=== PATIENT | female | born 1985 | race Caucasian/White ===

== ENCOUNTER 2021-01-10 13:12 | Inpatient (IN) | payer MEDICARE, SELFPAY ==
[2021-01-10 13:37] VITALS: BP 116/81; PULSE 76; RESP 18; TEMP 36.6; O2SAT 98
[2021-01-10 14:00] VITALS: BP 116/81; PULSE 76; RESP 18; TEMP 36.6; O2SAT 98
[2021-01-10 14:24] VITALS: BMI 21.1
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
[2021-01-10 20:55] VITALS: BP 121/80; PULSE 67; RESP 15; TEMP 36.7; O2SAT 99
[2021-01-10] MEDS: trazodone 50 mg Tablet PO (20:58)
[2021-01-11 06:00] VITALS: PULSE 62; RESP 15; TEMP 36.6; O2SAT 99
--- NOTE | 2021-01-11 09:15 | PC.OT ---
OT EVALUATION ATTEMPTED. PATIENT AWAKENS I AM TALKING WITH HER ROOM-MATE AND MUMBLES SEVERAL NUMBERS. HOWEVER, DOES NOT AWAKEN A FEW MINUTES LATER WHEN I ATTEMPT HER EVALUATION. WILL ATTEMPT AGAIN AT A LATER TIME.
--- NOTE | 2021-01-11 10:13 | PC.NURSE ---
PT BEHAVIOR LOUD BANGING SOUND HEARD COMING FROM PT'S ROOM. STAFF IMMEDIATELY WENT TO PT'S ROOM AND DISCOVERED THAT PT HAD THROWN HER MEAL TRAY INTO THE FLOOR. PT'S ROOMMATE APPEARED FRIGHTENED AND REPORTED THAT PT THREW HER TRAY OUT OF NOWHERE. WHEN TIMBER INSPECTOR ASKED PT WHAT TRIGGERED HER BEHAVIOR, PT REPORTS THAT SHE GOT MAD BECAUSE HER ROOMMATE WAS DOING SIGN LANGUAGE AT HER. PT WAS FACING THE WINDOW, THE OPPOSITE DIRECTION FROM HER ROOMMATE. TIMBER INSPECTOR ASKED IF PT SAW HER ROOMMATE DOING SIGN LANGUAGE AND PT REPORTED THAT SHE DID NOT. PT IS IRRITABLE AND ANGRY DEMANDING THAT HER ROOMMATE AND TIMBER INSPECTOR LEAVE HER ROOM. NURSING STAFF WILL MOVE PT'S ROOMMATE TO ANOTHER ROOM FOR SAFETY. PT RESTING IN BED WHEN TIMBER INSPECTOR EXITS THE ROOM. WILL CONTINUE TO MONITOR PT.
[2021-01-11] MEDS: ARIPiprazole 10 mg Tablet 5 MG PO (11:43)
--- NOTE | 2021-01-11 12:15 | P.NPUPN_ITS ---
Subjective NPU Subjective: Interval history: I found her in bed at 1210 after lunch. She was not asleep and was immediately attentive when I walked in the room. When I walked in the room she said she did not feel good. She complained that my voices were in her head. She asked me if I was putting my voice in her head. She says that she slept a little better last night but would like to increase her trazodone to sleep even better. She denies any benefits or any side effects from the Abilify 5 mg this morning. She requested increasing that to 10 mg. Mental Status Exam MSE Comments: This is a 35-year-old female who was found laying in bed very anxious and tearful. She is in hospital scrubs and disheveled. She seemed to be upset by my presence. She said I was putting voices in her head. psychomotor activity is increased. Speech is at a regular rate and rhythm, normal volume, good articulation, not pressured. Orientation was not obtained because she was not happy with the interaction.. Attention and concentration seem to be intact. Memory was not assessed Mood is depressed and anxious. Affect very dysphoric and tearful. Thought process is difficult to discern. Thought content: She reports hallucinations continue.. No delusions or paranoia are noted. No current suicidal ideation, and no homicidal ideation. Fund of knowledge is seems to be limited. Insight and judgment appear to be fair. Impulse control is fair as well. Cognition: Patient Appearance: Disheveled/Poor Hygiene Ability to Follow Directions: Fair Patient Orientation (long list): Person, Name and Birthday Comprehension Ability: Understands Concepts Hallucination Type: Visual Delusion Description: Paranoid Ideation and Persecutory Thought Process: Circumstantial Affect: Affect Description: Labile Behavior: Patient Behavior: Angry, Demanding, Hostile, Impulsive, Irritable and Uncooperative Speech Pattern: Includes Profanity Vitals/I&O/Wt Last Vital Signs Temp 97.9 F 01/11/21 06:00 Pulse 62 01/11/21 06:00 Resp 15 01/11/21 06:00 BP 121/80 01/10/21 20:55 Pulse Ox 99 01/11/21 06:00 Weight last 48 hrs Weight 48.988 kg A&P Assessment and plan (1) Schizophrenia, chronic condition: Status: Acute Additional A&P Information Plan: 1. We will increase Abilify to 10 mg and trazodone 100 mg. We will increase the Abilify fairly quickly and adjust trazodone as needed. We also adjust medication as more information is received. 2. Continue every 15 minute checks for safety. 3. Encourage individual, group and milieu therapies. 4. Encourage sober living treatment after discharge at the highest level of care to which she is willing to commit. 5. We will monitor for safety for herself in the community prior to discharge. Involuntary Hold Information 96 Hour Hold: 96 Hour Involuntary Admission: No Attestations NPU Medical Necessity Statement*: Inpatient hospitalization is medically necessary and the clinically appropriate intervention at this time. We will initiate medications and make changes as indicated. Coding Level of Care Code Acute Wheelchair Van Operator First Responder for Yohannes Moctezuma Diagnoses Schizophrenia, chronic condition F20.9
--- NOTE | 2021-01-11 13:23 | NPU.GN ---
[facility] Topic:Psychiatric Education General Mood of Group: Selene did not attend or participate in group today. p
[2021-01-11] MEDS: hyDROXYzine 25 mg Capsule 50 MG PO (13:31)
[2021-01-11] MEDS: OLANZapine 5 mg ODT PO (13:31)
[2021-01-11 14:00] VITALS: RESP 17
[2021-01-11] MEDS: trazodone 50 mg Tablet 100 MG PO (20:37)
[2021-01-11 21:20] VITALS: BP 101/60; PULSE 82; RESP 17; TEMP 37; O2SAT 98
[2021-01-12 06:00] VITALS: RESP 17
--- NOTE | 2021-01-12 06:21 | PC.NURSE ---
pt ripped b/p cuff off of her arm and loudly stated you will do this later and pt proceeded to throw cuff at staff
[2021-01-12] MEDS: ARIPiprazole 10 mg Tablet PO (10:02)
--- NOTE | 2021-01-12 12:29 | NPU.GN ---
[facility] Topic:roup Topic: What are we Thankful For General Mood of Group:Selene did not attend group today she wanted to sleep.
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
[2021-01-12 14:00] VITALS: BP 116/74; PULSE 122; RESP 18; O2SAT 93
[2021-01-12 21:43] VITALS: RESP 16
[2021-01-13 06:00] VITALS: RESP 16
[2021-01-13] MEDS: ARIPiprazole 10 mg Tablet 20 MG PO (08:57)
--- NOTE | 2021-01-13 13:05 | NPU.GN ---
[facility] Topic:Group Topic: Pie of Emotions, Coping, and Supports General Mood of Group: Selene did not attend or participate in group today.
[2021-01-13 14:00] VITALS: BP 113/80; PULSE 104; RESP 16; TEMP 36.6; O2SAT 97
--- NOTE | 2021-01-13 14:10 | P.NPUPN_ITS ---
Subjective NPU Subjective: Interval history: She is doing much better today. I found her at the nurses window and she seemed happy to talk to me which is a big change from yesterday. She said that she is doing well. I asked in what way she was better and she said I am not not angry and rude with you like I was before . She said she woke up and the voices were gone. I told her I had increased the Abilify today because I thought that the voices were no better. She said that is probably good and would like to continue at the higher dose. She does not feel that she has side effects from the Abilify at that dose. She feels like she is ready to leave. She said that she had arranged to go to [facility] in [place]. The social workers are going to look into that. Tomorrow but that will almost certainly be impossible. May be Monday. Mental Status Exam MSE Comments: This is a 35-year-old thin female in hospital scrubs who was found at the nurses station. She seemed happy to talk with me which is a big change from yesterday. psychomotor activity is mildly increased. Speech is at a regular rate and rhythm, normal volume, good articulation, not pressured. Alert and oriented x3. Attention and concentration seem to be intact. Memory seems to be intact Mood is good. Affect mildly anxious. She broke into tears when I said the Abilify was working. She said it was tears of aj. Thought process is difficult to discern. Thought content: She reports hallucinations are gone completely as of when she woke up this morning. No current suicidal ideation, and no homicidal ideation. Fund of knowledge is seems to be limited. Insight and judgment appear to be improved. Impulse control is improved as well. Cognition: Patient Appearance: Disheveled/Poor Hygiene Ability to Follow Directions: Fair Patient Orientation (long list): Person, Name and Birthday Comprehension Ability: Understands Concepts Hallucination Type: None Delusion Description: Paranoid Ideation and Persecutory Thought Process: Circumstantial Affect: Affect Description: Guarded Behavior: Patient Behavior: Appropriate and Irritable Speech Pattern: Appropriate Vitals/I&O/Wt Last Vital Signs Temp 98.6 F 01/11/21 21:20 Pulse 122 H 01/12/21 14:00 Resp 16 01/13/21 06:00 BP 116/74 01/12/21 14:00 Pulse Ox 93 01/12/21 14:00 A&P Assessment and plan (1) Schizophrenia, chronic condition: Status: Acute Additional A&P Information Plan: 1. Continue Abilify 20 mg and trazodone 100 mg. 2. Continue every 15 minute checks for safety. 3. Encourage individual, group and milieu therapies. 4. Encourage sober living treatment after discharge at the highest level of care to which she is willing to commit. 5. We will monitor for safety for herself in the community prior to discharge. Involuntary Hold Information 96 Hour Hold: 96 Hour Involuntary Admission: No Attestations NPU Medical Necessity Statement*: Inpatient hospitalization is medically necessary and the clinically appropriate intervention at this time. We will initiate medications and make changes as indicated. Coding Level of Care Code Acute Icebox Worker for Yohannes Moctezuma Diagnoses Schizophrenia, chronic condition F20.9
[2021-01-13 21:02] VITALS: BP 103/65; PULSE 88; RESP 15; O2SAT 97
[2021-01-13] MEDS: hyDROXYzine 25 mg Capsule 50 MG PO (23:23)
[2021-01-13] MEDS: OLANZapine 5 mg ODT PO (23:24)
[2021-01-14 06:00] VITALS: BP 126/88; PULSE 67; RESP 15; O2SAT 97
[2021-01-14] MEDS: ARIPiprazole 10 mg Tablet 20 MG PO (08:51)
[2021-01-14 14:00] VITALS: BP 126/88; PULSE 67; RESP 15; TEMP 36.6; O2SAT 97
--- NOTE | 2021-01-14 14:04 | W.PM.NPUPNS ---
Subjective NPU Subjective: Interval history: She said that she continues to do well. She continues to deny auditory or visual hallucinations. She is very focused on going home. I asked her about her brain being plugged into a computer as she told me the first day that she was here. She says that she does not know what I am talking about. She complains that we talked to her when she is half awake. She is very focused on going home tomorrow and said that we have no right to keep her longer than tomorrow. She is homeless and does not have a place to stay. She wants to be dropped off at a place where they help people find at home. She was told that they will not be open and will not be able to find a place to stay. She said that is fine and she would find a place. She was not happy that I did not feel comfortable releasing her without a safe place to stay. I got the impression that she might be covering up the voices because she wants to be released. Mental Status Exam MSE Comments: This is a 35-year-old thin female in hospital scrubs who was found at the nurses station. She seemed a little irritated with me today. psychomotor activity is mildly increased. Speech is at a regular rate and rhythm, normal volume, good articulation, not pressured. Alert and oriented x3. Attention and concentration seem to be intact. Memory seems to be intact Mood is good. Affect more anxious than yesterday. Thought process is difficult to discern. Thought content: She continues to report that the voices are completely gone. No current suicidal ideation, and no homicidal ideation. Fund of knowledge is seems to be limited. Insight and judgment appear to be limited. Impulse control is limited. Cognition: Patient Appearance: Disheveled/Poor Hygiene Ability to Follow Directions: Fair Patient Orientation (long list): Person, Name and Birthday Comprehension Ability: Understands Concepts Hallucination Type: None Delusion Description: Paranoid Ideation and Persecutory Thought Process: Circumstantial Affect: Affect Description: Guarded Behavior: Patient Behavior: Appropriate and Irritable Speech Pattern: Appropriate Vitals/I&O/Wt Last Vital Signs Temp 97.9 F 01/13/21 14:00 Pulse 67 01/14/21 06:00 Resp 15 01/14/21 06:00 BP 126/88 01/14/21 06:00 Pulse Ox 97 01/14/21 06:00 A&P Assessment and plan (1) Schizophrenia, chronic condition: Status: Acute Additional A&P Information Plan: 1. Continue Abilify 20 mg and trazodone 100 mg. 2. Continue every 15 minute checks for safety. 3. Encourage individual, group and milieu therapies. 4. Encourage sober living treatment after discharge at the highest level of care to which she is willing to commit. 5. We will monitor for safety for herself in the community prior to discharge. Involuntary Hold Information 96 Hour Hold: 96 Hour Involuntary Admission: No Attestations NPU Medical Necessity Statement*: Inpatient hospitalization is medically necessary and the clinically appropriate intervention at this time. We will initiate medications and make changes as indicated. Coding Level of Care Code Acute Line Assembler Aircraft for Yohannes Moctezuma Diagnoses Schizophrenia, chronic condition F20.9
[2021-01-14 19:12] VITALS: BP 120/80; PULSE 11; RESP 16; TEMP 37.1; O2SAT 94
[2021-01-14] MEDS: OLANZapine 5 mg ODT PO (20:48)
[2021-01-14] MEDS: hyDROXYzine 25 mg Capsule 50 MG PO (20:48)
[2021-01-15 05:33] VITALS: RESP 18
[2021-01-15] MEDS: ARIPiprazole 10 mg Tablet 20 MG PO (09:46)
--- NOTE | 2021-01-15 09:56 | P.NPUPN_ITS ---
Subjective NPU Subjective: Interval history: She said that she continues to be doing well. She continues to deny voices for the last 2 days. She says that she is not worried about people shape shifting. She feels like she is ready to go home. She is willing to wait until Monday when the place in [place] that she has been talking to is available. She said that she is not sleeping well. She evidently used her 2 doses of trazodone. She felt like it was working well for her. She has been getting Zyprexa 5 mg and Vistaril to help her sleep. She wanted the trazodone restarted. Mental Status Exam MSE Comments: This is a 35-year-old thin female in hospital scrubs who was found in bed at 10 AM. She did not seem irritated like she did yesterday. psychomotor activity is normal. Speech is at a regular rate and rhythm, normal volume, good articulation, not pressured. Alert and oriented x3. Attention and concentration seem to be intact. Memory seems to be intact Mood is good. Affect very mildly anxious. Thought process is difficult to discern. It is possible that she is covering up her hallucinations and delusions. Thought content: She continues to report that the voices are completely gone. No current suicidal ideation, and no homicidal ideation. Fund of knowledge is seems to be limited. Insight and judgment appear to be limited. Impulse control is limited. Cognition: Patient Appearance: Disheveled/Poor Hygiene Ability to Follow Directions: Fair Patient Orientation (long list): Person, Name and Birthday Comprehension Ability: Understands Concepts Hallucination Type: None Delusion Description: Paranoid Ideation and Persecutory Thought Process: Circumstantial Affect: Affect Description: Guarded Behavior: Patient Behavior: Appropriate and Irritable Speech Pattern: Appropriate Vitals/I&O/Wt Last Vital Signs Temp 98.8 F 01/14/21 19:12 Pulse 11 L 01/14/21 19:12 Resp 18 01/15/21 05:33 BP 120/80 01/14/21 19:12 Pulse Ox 94 01/14/21 19:12 A&P Assessment and plan (1) Schizophrenia, chronic condition: Status: Acute Additional A&P Information This is a 35-year old female with a long history of schizophrenia and who asked for admission to get back on her medications for her auditory hallucinations. Plan: 1. Continue Abilify 20 mg and trazodone 100 mg. 2. Continue every 15 minute checks for safety. 3. Encourage individual, group and milieu therapies. 4. Encourage sober living treatment after discharge at the highest level of care to which she is willing to commit. 5. We will monitor for safety for herself in the community prior to discharge. Involuntary Hold Information 96 Hour Hold: 96 Hour Involuntary Admission: No Attestations NPU Medical Necessity Statement*: Inpatient hospitalization is medically necessary and the clinically appropriate intervention at this time. We will initiate medications and make changes as indicated. Coding Level of Care Code Acute Product Engineering Manager for Yohannes Moctezuma Diagnoses Schizophrenia, chronic condition F20.9
[2021-01-15 14:00] VITALS: BP 112/75; PULSE 89; RESP 18; TEMP 36.7; O2SAT 100
[2021-01-15] MEDS: trazodone 100 mg Tablet PO (20:18)
[2021-01-15] MEDS: hyDROXYzine 25 mg Capsule 50 MG PO (20:19)
[2021-01-15 20:24] VITALS: BP 111/69; PULSE 116; RESP 18; TEMP 36.7; O2SAT 96
[2021-01-15] MEDS: OLANZapine 5 mg ODT PO (21:15)
[2021-01-16 05:57] VITALS: RESP 16
[2021-01-16] MEDS: ARIPiprazole 10 mg Tablet 20 MG PO (10:12)
--- NOTE | 2021-01-16 10:59 | P.NPUPN_ITS ---
Subjective NPU Subjective: Interval history: She was again found in bed at 11 AM. She says that she slept fairly well last night. She continues to say that her hallucinations are improved. The nurses say that she seems less paranoid. She denied any paranoia today. She very much wants to leave. She says that she could use her Social Security to get a hotel room so she can get a job. She says that she has an appointment at vocational rehab. She wants us to drop her off at the [facility] to get in contact with resources and then she will get a hotel using her Social Security. She says that she will have her Social Security deposited on her card today or tomorrow. Mental Status Exam MSE Comments: This is a 35-year-old thin female in hospital scrubs who was found in bed at 11 AM. She seemed mildly annoyed that I bothered her. psychomotor activity is normal. Speech is at a regular rate and rhythm, normal volume, good articulation, not pressured. Alert and oriented x3. Attention and concentration seem to be intact. Memory seems to be intact Mood is good. Affect very mildly anxious. Thought process is difficult to discern. Thought content: She continues to report that the voices are completely gone. No current suicidal ideation, and no homicidal ideation. Fund of knowledge is seems to be limited. Insight and judgment appear to be limited. Impulse control is limited. Cognition: Patient Appearance: Disheveled/Poor Hygiene Ability to Follow Directions: Fair Patient Orientation (long list): Person, Name and Birthday Comprehension Ability: Understands Concepts Hallucination Type: None Delusion Description: Paranoid Ideation and Persecutory Thought Process: Circumstantial Affect: Affect Description: Appropriate Behavior: Patient Behavior: Cooperative Speech Pattern: Appropriate and Clear Vitals/I&O/Wt Last Vital Signs Temp 98.0 F 01/15/21 20:24 Pulse 116 H 01/15/21 20:24 Resp 16 01/16/21 05:57 BP 111/69 01/15/21 20:24 Pulse Ox 96 01/15/21 20:24 A&P Assessment and plan (1) Schizophrenia, chronic condition: Status: Acute Additional A&P Information This is a 35-year old female with a long history of schizophrenia and who asked for admission to get back on her medications for her auditory hallucinations. Plan: 1. Continue Abilify 20 mg and trazodone 100 mg. 2. Continue every 15 minute checks for safety. 3. Encourage individual, group and milieu therapies. 4. Encourage sober living treatment after discharge at the highest level of care to which she is willing to commit. 5. We will monitor for safety for herself in the community prior to discharge. Involuntary Hold Information 96 Hour Hold: 96 Hour Involuntary Admission: No Attestations NPU Medical Necessity Statement*: Inpatient hospitalization is medically necessary and the clinically appropriate intervention at this time. We will initiate medications and make changes as indicated. Coding Level of Care Code Acute Check Services Clerk for Yohannes Moctezuma Diagnoses Schizophrenia, chronic condition F20.9
[2021-01-16 14:00] VITALS: BP 109/74; PULSE 88; RESP 18; TEMP 36.4; O2SAT 98
--- NOTE | 2021-01-16 18:35 | PC.NURSE ---
Patient resting in bed. Has been calm and cooperative today. Denies any AVH or SI/HI. Has good affect and appropriate responses when approached. Ox4. Remains isolative most of shift but has been up some, appropriate interaction when is up.
[2021-01-16 19:41] VITALS: BP 113/75; PULSE 91; RESP 15; TEMP 36.9; O2SAT 98
[2021-01-16] MEDS: hyDROXYzine 25 mg Capsule 50 MG PO (20:40)
[2021-01-16] MEDS: trazodone 100 mg Tablet PO (20:40)
[2021-01-17 06:00] VITALS: BP 116/79; PULSE 89; RESP 17; TEMP 36.6; O2SAT 98; BMI 21.1
[2021-01-17] MEDS: ARIPiprazole 10 mg Tablet 20 MG PO (10:15)
--- NOTE | 2021-01-17 10:53 | P.NPUPN_ITS ---
Subjective NPU Subjective: Interval history: She was again found in bed at 11 AM. She says that she slept fairly well last night. She continues to say that her hallucinations are completely gone. She denies any suicidal ideation or wishes for in the last few days. She has certainly been less irritable and seems to be doing better. She is still adamant that she wants to leave tomorrow whether or not she has a safe place to go. She says that she will use her Social Security to get a hotel room. Mental Status Exam MSE Comments: This is a 35-year-old thin female in hospital scrubs who was found in bed at 11 AM. She she did not seem annoyed that I bothered her. psychomotor activity is normal. Speech is at a regular rate and rhythm, normal volume, good articulation, not pressured. Alert and oriented x3. Attention and concentration seem to be intact. Memory seems to be intact Mood is good. Affect very mildly anxious. Thought process is difficult to discern. Thought content: She continues to report that the voices are completely gone. No delusional material was reported. She no longer feels that her brain is wired up for control. No current suicidal ideation, and no homicidal ideation. Fund of knowledge is seems to be limited. Insight and judgment appear to be limited. Impulse control is limited. Cognition: Patient Appearance: Disheveled/Poor Hygiene Ability to Follow Directions: Fair Patient Orientation (long list): Person, Name and Birthday Comprehension Ability: Understands Concepts Hallucination Type: None Delusion Description: Paranoid Ideation and Persecutory Thought Process: Circumstantial Affect: Affect Description: Calm Behavior: Patient Behavior: Cooperative Speech Pattern: Clear Vitals/I&O/Wt Last Vital Signs Temp 97.9 F 01/17/21 06:00 Pulse 89 01/17/21 06:00 Resp 17 01/17/21 06:00 BP 116/79 01/17/21 06:00 Pulse Ox 98 01/17/21 06:00 Weight last 48 hrs Weight 48.988 kg A&P Assessment and plan (1) Schizophrenia, chronic condition: Status: Acute Additional A&P Information This is a 35-year old female with a long history of schizophrenia and who asked for admission to get back on her medications for her auditory hallucinations. Plan: 1. Continue Abilify 20 mg and trazodone 100 mg. 2. Continue every 15 minute checks for safety. 3. Encourage individual, group and milieu therapies. 4. Encourage sober living treatment after discharge at the highest level of care to which she is willing to commit. 5. We will monitor for safety for herself in the community prior to discharge. Involuntary Hold Information 96 Hour Hold: 96 Hour Involuntary Admission: No Attestations NPU Medical Necessity Statement*: Inpatient hospitalization is medically necessary and the clinically appropriate intervention at this time. We will initiate medications and make changes as indicated. Coding Level of Care Code Acute [facility] Finisher for Yohannes Moctezuma Diagnoses Schizophrenia, chronic condition F20.9
[2021-01-17 13:58] LABS: Add Urine Culture? Yes; Amorphous Sediment Urine 3+ /hpf; Bacteria Urine 1+ /hpf; Bilirubin Urine Neg (Negative); Blood Urine Neg (Negative); Glucose Urine UA Norm (Normal); Ketones Urine Negative (Negative); Leukocyte Esterase Urine 2+ (Negative); Nitrate Urine Negative (Negative); Protein Urine Neg (Negative); Specific Gravity, Urine 1.015 (1.005-1.030); Sulfosalicylic Acid Urine Negative (Negative); Urine Appearance Clear (CLEAR); Urine Color Yellow (Yellow); Urobilinogen Urine Norm (Negative); WBC Urine 15-25 /hpf (0-5); pH Urine 8 (5-7)
[2021-01-17 14:00] VITALS: BP 110/70; PULSE 91; RESP 16; TEMP 36.7; O2SAT 98
[2021-01-17] MEDS: trazodone 100 mg Tablet PO (20:56)
[2021-01-17 21:36] VITALS: RESP 16
[2021-01-18 06:00] VITALS: RESP 20
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
[2021-01-18] MEDS: ARIPiprazole 10 mg Tablet 20 MG PO (09:10)
--- NOTE | 2021-01-18 10:00 | PC.NURSE ---
Patient discharging in uber car to [place]. Per patient request meds sent to [facility] in [place]. Patient A&OX4. Calm and cooperative. Excited to leave. Denies SI/HI or AVH.
[2021-01-18 10:03] VITALS: BP 110/70; PULSE 91; RESP 20; TEMP 36.7; O2SAT 98
--- NOTE | 2021-01-18 11:13 | PC.SOCIAL ---
IMM Update Discussed Medicare rights with patient, verbalized understanding. Provided patient with a copy and placed initialed, timed, dated copy in patient's chart.
== END 2021-01-18 10:37 | disposition home or self-care (01) | DRG 885 ==
PROVIDERS: Admitting Provider Psychiatry & Neurology Psychiatry; Visit Provider Psychiatry & Neurology Psychiatry
DX: F25.0 Schizoaffective disorder, bipolar type (principal); Z91.128 Patient's intentional underdosing of medication regimen for other reason; F15.10 Other stimulant abuse, uncomplicated
CPT/HCPCS: 81001; 87086; 97150; 97165